=== PATIENT | female | born 1985 | race Caucasian/White ===

== ENCOUNTER 2017-06-30 08:52 | Emergency (ER) | payer MEDICAID ==
[2017-06-30] MEDS: METHYLPREDNISOLONE 125 MG INJ IM (09:33)
[2017-06-30] MEDS: IPRATROPIUM (NEB) 0.5 MG/2.5 ML AMP NEB (09:46)
[2017-06-30] MEDS: ALBUTEROL 0.083% (NEB) 2.5 MG/3 ML AMP NEB (09:46)
== END 2017-06-30 10:35 | disposition home or self-care (01) ==
LOC: FTE 08:52
DX: J45.901 Unspecified asthma with (acute) exacerbation (principal)
CPT/HCPCS: 71045; 94664; 96372; 99284-25

== ENCOUNTER 2017-06-30 16:01 | Emergency (ER) | payer MEDICAID ==
[2017-06-30 20:42] LABS: ADD MAN DIFF? NO
[2017-06-30 20:46] LABS: BASOPHILS % 0.2 % (0.0-2.0); HEMATOCRIT 34.8 % (37.0-47.0); HEMOGLOBIN 12.3 g/dl (12.0-16.0); LYMPHOCYTES # 0.8 10^3/ul (0.8-2.9); LYMPHOCYTES % 5.9 % (15.0-51.0); MEAN CORPUSCULAR HEMOGLOBIN 29.6 pg (29.0-33.0); MEAN CORPUSCULAR HGB CONC 35.3 g/dl (32.0-37.0); MEAN CORPUSCULAR VOLUME 83.9 fl (82.0-101.0); MEAN PLATELET VOLUME 8.8 fl (7.4-10.4); MONOCYTE # 0.1 10^3/ul (0.3-0.9); MONOCYTES % 0.5 % (0.0-11.0); NEUTROPHIL # 12.4 10^3/ul (1.6-7.5); NEUTROPHILS % 92.9 % (39.0-77.0); PLATELET COUNT 454 10^3/UL (140-415); RED BLOOD COUNT 4.15 10^6/ul (4.20-5.40); RED CELL DISTRIBUTION WIDTH 12.9 % (11.5-14.5)
[2017-06-30 20:46] LABS: WHITE BLOOD COUNT 13.3 10^3/ul (4.8-10.8)
[2017-06-30] MEDS: ALBUTEROL 0.5% (NEB) 2.5 MG/0.5 ML AMP INH (20:47)
[2017-06-30 21:06] LABS: ALANINE AMINOTRANSFERASE 33 IU/L (13-69); ALBUMIN 4.8 g/dl (3.3-4.9); ALBUMIN/GLOBULIN RATIO 1.33; ALKALINE PHOSPHATASE 121 IU/L (42-121); ANION GAP 20 (8-16); ASPARTATE AMINO TRANSFERASE 21 IU/L (15-46); BILIRUBIN,INDIRECT 0.2 mg/dl (0-1.1); BILIRUBIN,TOTAL 0.2 mg/dl (0.2-1.3); BLOOD UREA NITROGEN 13 mg/dl (7-20); CALCIUM 9.9 mg/dl (8.4-10.2); CARBON DIOXIDE 20 mmol/L (21-31); CHLORIDE 104 mmol/L (97-110); CREATININE 0.49 mg/dl (0.44-1.00); GLUCOSE 162 mg/dl (70-220); POTASSIUM 3.8 mmol/L (3.5-5.1); SODIUM 140 mmol/L (135-144); TOTAL PROTEIN 8.4 g/dl (6.1-8.1)
[2017-06-30] MEDS: SOD CHLORIDE 0.9% 1,000 ML IV (21:11)
[2017-06-30] MEDS: IOHEXOL 300MG/ML 150 ML BTL (22:22)
[2017-06-30] MEDS: SOD CHLORIDE 0.9% 100 ML (22:22)
[2017-06-30] MEDS: LORAZEPAM 2 MG INJ IV (23:48)
[2017-06-30] MEDS: HYDROCODONE/APAP (10/325) TAB PO (23:48)
[2017-07-01] MEDS: IOHEXOL 300MG/ML 150 ML BTL (01:18)
[2017-07-01] MEDS: SOD CHLORIDE 0.9% 100 ML (01:18)
[2017-07-01] MEDS: LORAZEPAM 2 MG INJ IV (06:42)
== END 2017-07-01 07:54 | disposition home or self-care (01) ==
LOC: E/R 07-01 07:54
DX: J45.901 Unspecified asthma with (acute) exacerbation (principal)
CPT/HCPCS: 36415; 70491; 71045; 71275; 80053; 85025; 93005; 94644; 96374; 96376; 99285-25